=== PATIENT | female | born 1975 | race Caucasian/White ===

== ENCOUNTER 2016-08-01 14:13 | Emergency (ER) | payer SELFPAY ==
--- NOTE | ~2016-08-01 | ER ---
PATIENT'S NAME: MYAH GUERRIER [facility] AGE: 41 Y [address] ROOM: [place] [address] LOCATION: [facility] ADMIT DATE: 08/01/2016 ER/Outpatient Report DISCHARGE DATE: 08/01/2016 FAMILY PHYSICIAN: PHYSICIAN, NO ATTENDING PHYSICIAN: Stephania Mckeon Time of Arrival: 1413 hours. Time of Evaluation: 1425 hours. CHIEF COMPLAINT: Unpack under left arm. HISTORY OF PRESENT ILLNESS: This is a 41-year-old female, who presents to the ER who states she had an abscess drain underneath her left armpit. The patient states that she needs to have that rechecked and feels like she has some redness to her skin. She is not for sure if it is due to the infection or due to the adhesive on the bandages. She has not been running any fevers. She has continued to use her Bactrim as directed. She denies any other problems at this time. MEDICATIONS: 1. Bactrim. 2. Lisinopril. 3. Trazodone. 4. Pristiq. 5. Naprosyn. ALLERGIES: NO KNOWN ALLERGIES. PAST MEDICAL HISTORY: Hypertension and anxiety. SOCIAL HISTORY: She smokes half pack a day. Denies any drug or alcohol use. ROS: A 10-point review of systems was completed and was negative with the exception of those discussed in the HPI. PHYSICAL EXAMINATION: VITAL SIGNS: Weight 68.1 kg taken, blood pressure is 105/70, pulse 100, respirations 20, temperature 98 degrees tympanically, saturations 96% on room air. [place] Coma Score is 15. GENERAL: Alert, calm, well-developed female, in no acute distress. PATIENT'S NAME: MYAH GUERRIER [facility] AGE: 41 Y [address] ROOM: [place] [address] LOCATION: [facility] ADMIT DATE: 08/01/2016 ER/Outpatient Report DISCHARGE DATE: 08/01/2016 FAMILY PHYSICIAN: PHYSICIAN, NO ATTENDING PHYSICIAN: Stephania Mckeon LUNGS: Clear to auscultation bilaterally. No wheezes or crackles. Normal respiratory effort. HEART: Regular rate and rhythm. No lifts, thrills, or murmurs. EXTREMITIES: No clubbing or cyanosis. There is full range of motion of all limbs. SKIN: She has a packing in place, we did remove that. She has an open wound to her left armpit. There is no drainage. She does have erythema to the skin and it does appear to be irritation from the adhesive. She does have little bit of cystic breast tissue noted to the left breast as well. LABORATORY DATA AND X-RAYS: None were done. IMPRESSION: Wound recheck from recently drained abscess to the armpit. EMERGENCY DEPARTMENT COURSE: DISPOSITION/FOLLOW-UP: ASSESSMENT AND PLAN: Discussed the patient's care with Dr. Mckeon. Dr. Mckeon also evaluated the patient. We did give the patient reassurance. We advised her to change her bandage to just leaving it open or just placing a piece of gauze under her armpit instead of using adhesive dressings. She needs to continue her Bactrim. She needs to continue taking her Naprosyn as well and monitor her symptoms. The patient understands and agrees with care. GAYATHRI SHARPE PA-C FOR DO [employer]/nicole /[id number] ATTENDING ADDENDUM: I saw and evaluated the patient. I have discussed with the PA, agree with the PA's findings and plan and agree with the documented note above. STEPHANIA MCKEON DO d: 08/01/16 2304 t: 08/04/16 1945, OUTPATIENT REPORT
== END 2016-08-01 14:29 | disposition disaster alternative care site (69) ==
LOC: GMED 14:13
DX: Z48.01 Encounter for change or removal of surgical wound dressing (principal); I10 Essential (primary) hypertension; F41.9 Anxiety disorder, unspecified; F17.210 Nicotine dependence, cigarettes, uncomplicated

== ENCOUNTER → 2016-09-02 | Outpatient (CLI) | payer OTHER | LOC: LKCL 13:49 | DX: Z13.220 Encounter for screening for lipoid disorders (principal); Z13.1 Encounter for screening for diabetes mellitus; Z01.419 Encounter for gynecological examination (general) (routine) without abnormal findings; Z12.4 Encounter for screening for malignant neoplasm of cervix | CPT/HCPCS: G0145 ==